=== PATIENT | female | born 2000 | race African-American/Black ===

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

== ENCOUNTER 2021-06-12 16:34 | Emergency (ER) | payer OTHER ==
[~2021-06-12] VITALS: Ht 157.5 cm; Wt 68.0 kg
[~2021-06-12 16:34] MED LIST changes: -SIME180C PO; +SIME180C25 PO
[2021-06-12 16:35] VITALS: BP 128/83
[2021-06-12] MEDS ORDERED: ACETAMINOPHEN 500 MG TAB PO ONE (18:25)
[2021-06-12] MEDS ORDERED: ONDANSETRON 4 MG ORAL DISINTEGRATING TAB PO ONE (18:25)
[2021-06-12 18:55] LABS: RSV AMPLIFICATION NEGATIVE (NEGATIVE)
[2021-06-12] MEDS ORDERED: VENTAER INH (19:28)
[2021-06-12 19:30] VITALS: O2SAT 100
== END 2021-06-12 20:19 | disposition home or self-care (01) ==
LOC: M ED 16:34
DX: J20.9 Acute bronchitis, unspecified (principal)
CPT/HCPCS: 36415; 84702; 87631; 87880; 99283; Q0162

== ENCOUNTER → 2021-07-25 | Outpatient (REF) | payer OTHER ==
[~2021-07-25] MED LIST changes: -DICY20TA11 PO; +DICY20TA20 PO; +VENTAER INH
[2021-07-25 16:53] LABS: HEMATOCRIT 33.3 % (36.0-47.0); HEMOGLOBIN 11.3 g/dl (12.0-15.5); MEAN CORPUSCULAR HGB CONC 33.9 g/dl (32.0-36.5); MEAN CORPUSCULAR VOLUME 82.4 fl (80.0-96.0); PLATELET COUNT, AUTOMATED 315 10^3/uL (150-450); RED BLOOD COUNT 4.04 10^6/uL (4.00-5.40); WHITE BLOOD COUNT 5.7 10^3/uL (4.0-10.0)
[2021-07-25 17:48] LABS: HCG, SERUM QUANTITATIVE 13658 MIU/ML; HEPATITIS B SURFACE ANTIGEN NEGATIVE (NEGATIVE)
[2021-07-25 18:09] LABS: HEPATITIS C VIRUS ABY INDEX < 0.0 INDEX (<0.8)
[2021-07-25 18:10] LABS: HIV 1&2 SCREEN CENTAUR NEGATIVE (NEGATIVE)
== END ==
LOC: M LAB REF 16:25
PROVIDERS: ATTEND Obstetrics & Gynecology
DX: O36.80X0 Pregnancy with inconclusive fetal viability, not applicable or unspecified (principal); Z32.01 Encounter for pregnancy test, result positive

== ENCOUNTER 2021-10-29 15:50 | Outpatient (CLI) | payer OTHER ==
[~2021-10-29] VITALS: Ht 157.5 cm; Wt 68.8 kg
[2021-10-29 16:15] VITALS: BP 115/57
[2021-10-29] MEDS ORDERED: PRENTAB9 PO (16:15)
[2021-10-29] MEDS ORDERED: HOME MED LIST COMPLETE! XX SCH (16:20)
[2021-10-29 16:47] LABS: APPEARANCE, URINE HAZY (CLEAR); BACTERIA, URINE AUTO 1+ (NEGATIVE); BILIRUBIN, URINE AUTO NEGATIVE (NEGATIVE); BLOOD, URINE BLOOD NEGATIVE (NEGATIVE); COLOR, URINE YELLOW (YELLOW); GLUCOSE, URINE (UA) AUTO NEGATIVE (NEGATIVE); KETONE, URINE AUTO NEGATIVE (NEGATIVE); LEUKOCYTE ESTERASE, URINE AUTO NEGATIVE (NEGATIVE); NITRITE, URINE AUTO NEGATIVE (NEGATIVE); PROTEIN, URINE AUTO NEGATIVE (NEGATIVE); RBC, URINE AUTO 1 /HPF (0-3); SPECIFIC GRAVITY URINE AUTO 1.015 (1.002-1.035); SQUAMOUS EPITHELIAL CELL UR AU 13 /HPF (0-6); UROBILINOGEN, URINE AUTO 0.2 mg/dL (0.0-2.0); WBC, URINE AUTO 2 /HPF (0-3)
[2021-10-29 19:53] VITALS: BP 126/69
[2021-10-29 22:25] LABS: GC DNA AMPLIFICATION NEGATIVE (NEGATIVE)
== END 2021-10-29 19:54 | disposition home or self-care (01) ==
LOC: M LDO 15:50
PROVIDERS: ATTEND Advanced Practice Midwife
DX: O26.892 Other specified pregnancy related conditions, second trimester (principal); R10.30 Lower abdominal pain, unspecified; R10.2 Pelvic and perineal pain; O44.22 Partial placenta previa NOS or without hemorrhage, second trimester; Z3A.19 19 weeks gestation of pregnancy

== ENCOUNTER → 2021-11-02 | Outpatient (CLI) | payer OTHER ==
[~2021-11-02] MED LIST changes: +PRENTAB9 PO
== END ==
LOC: M WHC 14:02
PROVIDERS: ATTEND Obstetrics & Gynecology
DX: Z36.89 Encounter for other specified antenatal screening (principal); Z3A.20 20 weeks gestation of pregnancy

== ENCOUNTER 2021-12-02 15:45 | Outpatient (CLI) | payer OTHER ==
[~2021-12-02] VITALS: Ht 157.5 cm; Wt 24.8 kg
[2021-12-02 16:02] VITALS: BP 124/63
[2021-12-02] MEDS ORDERED: HOME MED LIST COMPLETE! XX SCH (16:05)
[2021-12-02] MEDS ORDERED: ACETAMINOPHEN 500 MG TAB PO ONE (16:45)
[2021-12-02 16:58] LABS: AMORPHOUS SEDIMENT SMALL (NEGATIVE); APPEARANCE, URINE HAZY (CLEAR); BACTERIA, URINE AUTO NEGATIVE (NEGATIVE); BILIRUBIN, URINE AUTO NEGATIVE (NEGATIVE); BLOOD, URINE BLOOD NEGATIVE (NEGATIVE); COLOR, URINE YELLOW (YELLOW); GLUCOSE, URINE (UA) AUTO NEGATIVE (NEGATIVE); KETONE, URINE AUTO NEGATIVE (NEGATIVE); LEUKOCYTE ESTERASE, URINE AUTO NEGATIVE (NEGATIVE); NITRITE, URINE AUTO NEGATIVE (NEGATIVE); PROTEIN, URINE AUTO NEGATIVE (NEGATIVE); RBC, URINE AUTO 0 /HPF (0-3); SPECIFIC GRAVITY URINE AUTO 1.013 (1.002-1.035); SQUAMOUS EPITHELIAL CELL UR AU 5 /HPF (0-6); UROBILINOGEN, URINE AUTO 0.2 mg/dL (0.0-2.0); WBC, URINE AUTO 1 /HPF (0-3)
== END 2021-12-02 17:25 | disposition home or self-care (01) ==
LOC: M LDO 15:45 → EDSTATUS 12-10 14:57
PROVIDERS: ATTEND Obstetrics & Gynecology
DX: O26.892 Other specified pregnancy related conditions, second trimester (principal); M54.50 Low back pain, unspecified; Z3A.24 24 weeks gestation of pregnancy

== ENCOUNTER → 2022-01-16 | Outpatient (CLI) | payer OTHER ==
[2022-01-16 14:59] LABS: BASO % 0.3 % (0.0-1.0); EOS # 0.1 10^3/uL (0.0-0.5); HEMATOCRIT 26.9 % (36.0-47.0); HEMOGLOBIN 8.8 g/dl (12.0-15.5); LYMPH # 1.3 10^3/uL (1.5-5.0); LYMPH % 20.4 % (24.0-44.0); MEAN CORPUSCULAR HEMOGLOBIN 28.7 pg (27.0-33.0); MEAN CORPUSCULAR HGB CONC 32.7 g/dl (32.0-36.5); MEAN CORPUSCULAR VOLUME 87.6 fl (80.0-96.0); MONO # 0.5 10^3/uL (0.0-0.8); MONO % 8.6 % (2.0-8.0); NEUTROPHILS # 4.3 10^3/uL (1.5-8.5); NEUTROPHILS % 68.9 % (36.0-66.0); PLATELET COUNT, AUTOMATED 256 10^3/uL (150-450); RED BLOOD COUNT 3.07 10^6/uL (4.00-5.40); WHITE BLOOD COUNT 6.2 10^3/uL (4.0-10.0)
== END ==
LOC: M LAB 13:33
PROVIDERS: ATTEND Obstetrics & Gynecology
DX: Z34.02 Encounter for supervision of normal first pregnancy, second trimester (principal); Z3A.00 Weeks of gestation of pregnancy not specified

== ENCOUNTER 2022-01-20 11:58 | Outpatient (CLI) | payer OTHER ==
[~2022-01-20] VITALS: Ht 157.5 cm; Wt 79.7 kg
[2022-01-20 12:12] VITALS: BP 116/59
[2022-01-20] MEDS ORDERED: ceFAZolin SOD 2 GM in IV 1 EA IV ONE (13:00)
[2022-01-20] MEDS ORDERED: LR 1,000 ML IV ONE (13:00)
[2022-01-20] MEDS ORDERED: CEPH25SS PO (16:18)
== END 2022-01-20 16:00 | disposition home or self-care (01) ==
LOC: M LDO 11:58
PROVIDERS: ATTEND Obstetrics & Gynecology
DX: O47.03 False labor before 37 completed weeks of gestation, third trimester (principal); Z3A.30 30 weeks gestation of pregnancy
CPT/HCPCS: 59025; 76815; 76816; 76817; 76820; 81001; 87086; 96360; J0690

== ENCOUNTER 2022-02-21 19:56 | Outpatient (CLI) | payer OTHER ==
[~2022-02-21] VITALS: Ht 157.5 cm; Wt 85.2 kg
[~2022-02-21 19:56] MED LIST changes: +CEPH25SS PO
[2022-02-21 20:56] VITALS: BP 142/75
== END 2022-02-21 22:00 | disposition home or self-care (01) ==
LOC: M LDO 19:56
PROVIDERS: ATTEND Specialist
DX: O26.893 Other specified pregnancy related conditions, third trimester (principal); R10.2 Pelvic and perineal pain; M54.50 Low back pain, unspecified; O47.03 False labor before 37 completed weeks of gestation, third trimester; Z3A.35 35 weeks gestation of pregnancy

== ENCOUNTER → 2022-02-26 | Outpatient (REF) | payer OTHER ==
[2022-02-26 16:35] LABS: HEMOGLOBIN 8.4 g/dl (12.0-15.5); MEAN CORPUSCULAR HEMOGLOBIN 27.1 pg (27.0-33.0); MEAN CORPUSCULAR HGB CONC 31.1 g/dl (32.0-36.5); MEAN CORPUSCULAR VOLUME 87.1 fl (80.0-96.0); PLATELET COUNT, AUTOMATED 290 10^3/uL (150-450); WHITE BLOOD COUNT 6.4 10^3/uL (4.0-10.0)
== END ==
LOC: M LAB REF 16:10
PROVIDERS: ATTEND Obstetrics & Gynecology
DX: Z36.89 Encounter for other specified antenatal screening (principal)

== ENCOUNTER 2022-03-21 05:12 | Inpatient (IN) | payer OTHER ==
[~2022-03-21] VITALS: Ht 157.5 cm; Wt 81.8 kg
[2022-03-21] VITALS (33 sets, daily range): BP systolic 109–153; BP diastolic 53–101
[2022-03-21] MEDS ORDERED: PENICILLIN G POTASSIUM 5 MU IV 5 MU in D5W MINI-BAG PLUS 100 ML IV ONE (06:15)
[2022-03-21] MEDS ORDERED: PENICILLIN G POTASSIUM IV 2.5 MU in IV 1 EA IV SCH (06:15)
[2022-03-21 06:41] LABS: HEMATOCRIT 29.5 % (36.0-47.0); HEMOGLOBIN 9.4 g/dl (12.0-15.5); MEAN CORPUSCULAR HEMOGLOBIN 27.2 pg (27.0-33.0); MEAN CORPUSCULAR HGB CONC 31.9 g/dl (32.0-36.5); MEAN CORPUSCULAR VOLUME 85.3 fl (80.0-96.0); PLATELET COUNT, AUTOMATED 298 10^3/uL (150-450); RED BLOOD COUNT 3.46 10^6/uL (4.00-5.40); WHITE BLOOD COUNT 7.8 10^3/uL (4.0-10.0)
[2022-03-21] MEDS ORDERED: PENICILLIN G POTASSIUM 5 MU IV 5 MU in D5W MINI-BAG PLUS 100 ML IV STA (06:53)
[2022-03-21] MEDS ORDERED: OXYTOCIN INJ 10 UNITS/ML VIAL (J2590) IM PRN (06:55)
[2022-03-21] MEDS ORDERED: METHYLERGONOVINE MALEATE 0.2 MG/ML VIAL (J2210) IM PRN (06:55)
[2022-03-21] MEDS ORDERED: CARBOPROST TROMETHAMINE 250 MCG/ML AMP IM PRN (06:55)
[2022-03-21] MEDS ORDERED: LIDOCAINE 1% MDV 20ML VIAL INFIL PRN (06:55)
[2022-03-21] MEDS ORDERED: TRANEXAMIC ACID INJection 1,000 MG in NS 100 ML IV PRN (06:55)
[2022-03-21] MEDS ORDERED: OXYTOCIN DRIP 30 UNITS in IV 1 EA IV PRN ×4 (06:55)
[2022-03-21] MEDS ORDERED: ONDANSETRON 4MG 2ML VIAL IV PRN ×3 (07:05→15:55)
[2022-03-21] MEDS ORDERED: ePHEDrine SULFATE 25 MG/5 ML(5MG/ML) SYRINGE IVP PRN (07:10)
[2022-03-21] MEDS ORDERED: EPIDURAL/PCA KEYS XX PRN (07:10)
[2022-03-21] MEDS ORDERED: LR 500 ML IV PRN (07:10)
[2022-03-21] MEDS ORDERED: diphenhydrAMINE 50MG/ML VIAL (J1200) IV PRN (07:10)
[2022-03-21] MEDS ORDERED: NALOXONE INJ 0.4MG/1ML VIAL (J2310 PER 1MG) IV PRN (07:10)
[2022-03-21] MEDS ORDERED: FENTANYL/ROPIVACAINE/NACL BAG 100 ML EPIDURAL SCH (07:10)
[2022-03-21] MEDS ORDERED: FENTANYL 2MCG/ML ROPIVACAINE 0.2% IN 0.9% NACL 100ML IVBAG As Ordered ONE (07:14)
[2022-03-21] MEDS: PRENATAL VITAMINS CHEWABLE TABLET PO SCH (09:00)
[2022-03-21] MEDS ORDERED: OXYTOCIN DRIP 30 UNITS in IV 1 EA IV SCH ×2 (09:00→15:55)
[2022-03-21] MEDS ORDERED: HOME MED LIST COMPLETE! XX SCH (09:40)
[2022-03-21] MEDS: PEN G POT 3,000,000 UNIT/50 ML 3,000,000 UNIT in IV 1 EA IV SCH ×2 (10:49→14:36)
[2022-03-21] MEDS ORDERED: PEN G POT 3,000,000 UNIT/50 ML 3,000,000 UNIT in IV 1 EA IV SCH (10:55)
[2022-03-21] MEDS ORDERED: LR 1,000 ML IV SCH ×3 (12:40→15:55)
[2022-03-21] MEDS ORDERED: DIBUCAINE 1% OINTMENT 30GM TOP PRN (15:55)
[2022-03-21] MEDS ORDERED: ACETAMINOPHEN TAB 650MG DOSE (2X325MG) PO PRN (15:55)
[2022-03-21] MEDS ORDERED: IBUPROFEN 600MG TAB PO PRN (15:55)
[2022-03-21] MEDS ORDERED: METHYLERGONOVINE MALEATE 0.2 MG TAB PO PRN (15:55)
[2022-03-21] MEDS ORDERED: ANUSOL HC CREAM 30GM TOP PRN (15:55)
[2022-03-21] MEDS ORDERED: DOCUSATE SODIUM 100MG CAPSULE PO PRN (15:55)
[2022-03-22] MEDS: IBUPROFEN 800 MG TAB PO PRN ×2 (00:47→16:39)
[2022-03-22 06:51] VITALS: BP 112/58
[2022-03-22] MEDS: ACETAMINOPHEN 500 MG TAB PO PRN ×2 (08:27→19:57)
[2022-03-22] MEDS: PRENATAL VITAMINS CHEWABLE TABLET PO SCH (08:27)
[2022-03-22 18:00] VITALS: BP 126/72
[2022-03-23 06:05] VITALS: BP 115/60
[2022-03-23] MEDS ORDERED: MEASLES,MUMPS,RUBELLA VACCINE INJ (MMR-II) (90707) SC.IMMUN ONE (09:00)
[2022-03-23] MEDS: PRENATAL VITAMINS CHEWABLE TABLET PO SCH (09:29)
[2022-03-23] MEDS: IBUPROFEN 800 MG TAB PO PRN (09:29)
== END 2022-03-23 15:30 | disposition home or self-care (01) | DRG 560 ==
LOC: M LDO 05:12 → M LDI 05:48 → M OBS 18:15
PROVIDERS: ADMIT Advanced Practice Midwife; ATTEND Obstetrics & Gynecology
PROC: 10E0XZZ Delivery of Products of Conception, External Approach (ICD-10-PCS; principal; 2022-03-21)
PROC: 0KQM0ZZ Repair Perineum Muscle, Open Approach (ICD-10-PCS; 2022-03-21)
DX: O99.824 Streptococcus B carrier state complicating childbirth (principal); Z37.0 Single live birth; Z3A.39 39 weeks gestation of pregnancy; O70.1 Second degree perineal laceration during delivery

== ENCOUNTER 2022-11-16 09:41 | Emergency (ER) | payer OTHER ==
[2022-11-16 09:53] VITALS: BP 126/73
[2022-11-16] MEDS ORDERED: GI COCKTAIL 50ML BTL(HYOSCYAMINE/MAALOX/LIDOCAINE VISCOUS)(1:3:1) PO ONE (10:55)
[2022-11-16] MEDS ORDERED: SUCRALFATE 1 GM TAB PO ONE (10:55)
[2022-11-16] MEDS ORDERED: PANTOPRAZOLE 40MG VIAL IV ONE (10:55)
[2022-11-16] MEDS ORDERED: NS 1,000 ML IV ONE (10:55)
[2022-11-16 11:26] LABS: HEMOGLOBIN 11.3 g/dl (12.0-15.5); MEAN CORPUSCULAR HGB CONC 33.2 g/dl (32.0-36.5); MEAN CORPUSCULAR VOLUME 81.1 fl (80.0-96.0); PLATELET COUNT, AUTOMATED 257 10^3/uL (150-450); RED BLOOD COUNT 4.19 10^6/uL (4.00-5.40); WHITE BLOOD COUNT 14.1 10^3/uL (4.0-10.0)
[2022-11-16] MEDS ORDERED: ISOVUE-370 76% 100ML VIAL As Ordered ONE (11:33)
[2022-11-16 11:43] LABS: ATYPICAL LYMPH 33 % (0-5); LYMPHOCYTES 31 % (16-44); METAMYELOCYTES 4 % (0-0); MONOCYTES 9 % (0-5); NEUTROPHILS 23 % (28-66); PLATELET ESTIMATE NORMAL (NORMAL)
[2022-11-16 11:45] LABS: ANISOCYTOSIS 1+
[2022-11-16 11:49] LABS: MONO REFLEX EBV COMP POSITIVE (NEGATIVE)
[2022-11-16 11:51] LABS: LIPASE 24 U/L (12-53)
[2022-11-16 11:53] LABS: ALBUMIN 3.6 G/DL (3.2-5.2); ALKALINE PHOSPHATASE 82 U/L (46-116); ALT/SGPT 66 U/L (7.0-40); AST/SGOT 68 U/L (<34); BILIRUBIN,DIRECT 0.2 MG/DL (<0.4); BILIRUBIN,TOTAL 0.5 MG/DL (0.3-1.2); TOTAL PROTEIN 7.2 G/DL (5.7-8.2)
[2022-11-16] MEDS ORDERED: KETOROLAC 30 MG/ML 1ML VIAL IV ONE (13:50)
[2022-11-16] MEDS ORDERED: ONDA4TAB6 PO (14:13)
[2022-11-16] MEDS ORDERED: NAPR-837 PO (14:13)
[2022-11-16] MEDS ORDERED: CARA1TAB6 PO (14:17)
[2022-11-16] MEDS ORDERED: OMEP40CA4 PO (14:17)
== END 2022-11-16 14:53 | disposition home or self-care (01) ==
LOC: M ED 09:41 → EDBD 09:41 → M ED 14:53
DX: B27.90 Infectious mononucleosis, unspecified without complication (principal); R11.2 Nausea with vomiting, unspecified; R19.7 Diarrhea, unspecified; R51.9 Headache, unspecified; J03.90 Acute tonsillitis, unspecified
CPT/HCPCS: 70491; 76705; 80047; 80076; 81001; 83690; 84702; 85025; 86308; 87880; 96374; 96375; 99284; C9113; J1100; J1885; Q9967

== ENCOUNTER 2025-01-18 19:22 | Emergency (ER) | payer OTHER ==
[~2025-01-18] VITALS: Ht 152.4 cm; Wt 64.8 kg
[~2025-01-18 19:22] MED LIST changes: +CARA1TAB6 PO; +NAPR-837 PO; +OMEP40CA4 PO; +ONDA-282 PO; -ONDA4TAB6 PO; -SIME180C25 PO; +SIME1CAP4 PO
[2025-01-18 20:26] LABS: BASO # 0.1 10^3/uL (0.0-0.2); BASO % 1.0 % (0.0-1.0); EOS # 0.1 10^3/uL (0.0-0.5); EOS % 1.9 % (0.0-3.0); KETONE, URINE AUTO RFX NEGATIVE (NEGATIVE); LEUKOCYTE ESTERASE UR AUTO RFX NEGATIVE (NEGATIVE); LYMPH # 1.9 10^3/uL (1.5-5.0); LYMPH % 30.6 % (24.0-44.0); MONO # 0.8 10^3/uL (0.0-0.8); MONO % 12.5 % (2.0-8.0); MUCUS, URINE RFX SMALL (NEGATIVE); NEUTROPHILS # 3.4 10^3/uL (1.5-8.5); NEUTROPHILS % 53.8 % (36.0-66.0); NITRITE, URINE AUTO RFX NEGATIVE (NEGATIVE); PLATELET COUNT, AUTOMATED 296 10^3/uL (150-450); RBC, URINE AUTO RFX 4 /HPF (0-3); SQUAM EPITHELIAL CELL UR AURFX 5 /HPF (0-6); WBC, URINE AUTO RFX 1 /HPF (0-3)
[2025-01-18 20:54] LABS: HCG, SERUM QUALITATIVE NEGATIVE (NEGATIVE)
[2025-01-18 20:55] LABS: ALT/SGPT 13 U/L (7.0-40); AST/SGOT 18 U/L (<34); CALCIUM LEVEL 9.8 MG/DL (8.5-10.1); CARBON DIOXIDE LEVEL 25 MMOL/L (20-31); CHLORIDE LEVEL 105 MMOL/L (98-107); CREATININE FOR GFR 0.75 MG/DL (0.55-1.30); GLOMERULAR FILTRATION RATE > 90.0 (>60); POTASSIUM SERUM 4.4 MMOL/L (3.5-5.1); SODIUM LEVEL 141 MMOL/L (136-145)
[2025-01-18] MEDS ORDERED: ISOVUE-370 76% 100 ML VIAL As Ordered ONE (22:18)
[2025-01-18] MEDS: KETOROLAC 30 MG/ML 1 ML VIAL IV ONE (22:29)
[2025-01-19 01:02] VITALS: BP 109/68; O2SAT 100
[2025-01-19] MEDS ORDERED: KETO-204 PO (01:09)
[2025-01-19 01:36] VITALS: TEMP 98.3
== END 2025-01-19 01:37 | disposition home or self-care (01) ==
LOC: M ED 19:22
DX: R10.9 Unspecified abdominal pain (principal); N85.4 Malposition of uterus; F17.290 Nicotine dependence, other tobacco product, uncomplicated; F12.10 Cannabis abuse, uncomplicated; F10.10 Alcohol abuse, uncomplicated; Z79.2 Long term (current) use of antibiotics; Z79.810 Long term (current) use of selective estrogen receptor modulators (SERMs); Z79.899 Other long term (current) drug therapy
CPT/HCPCS: 74177; 76830; 76856; 80048; 80076; 81001; 83690; 84703; 85025; 87486; 87581; 87633; 87798; 93976; 96374; 99284; J1885; Q9967